=== PATIENT | female | born 1975 | race African-American/Black ===

== ENCOUNTER 2022-03-28 13:05 | Day surgery (SDC) | payer OTHER, SELFPAY ==
--- NOTE | 2022-03-28 | PATH_ITS ---
[facility] Accession Number: [id number] No. of containers..02 Tissue . 01 Material submitted: . PART A: sigmoid colon - SIGMOID PART B: rectum - RECTUM . 01 Diagnosis: A. Sigmoid Colon, Biopsy: Hyperplastic polyp with a small benign lymphoid aggregate. . B. Rectum, Biopsy: Hyperplastic polyp. MRV 04/03/2022 1342 Local . 01 Electronically signed: . Yudi Childs MD, Pathologist NPI- [id number] . 01 Gross description: . Part A: SIGMOID: Received in formalin is 1 fragment(s) of zheng, soft tissue measuring 0.2 x 0.2 x 0.2 cm submitted entirely in 1 cassette(s) Part B: RECTUM: Received in formalin are 2 fragment(s) of zheng, soft tissue measuring 0.3 x 0.2 x 0.1 cm to 0.2 x 0.1 x 0.1 cm submitted entirely in 1 cassette(s) /CPE 03/29/2022 0504 Local . 01 Pathologist provided ICD-10: K63.5 . 01 CPT . 367224, [id number] Specimen Comment: A courtesy copy of this report has been sent to [phone] Performed at: 01 [facility] [address] [place] [address] [address] [facility], [place], [place] [id number] MD Fox Stern MD Phone: [phone]
[2022-03-28 13:41] VITALS: BMI 32.7
[2022-03-28 14:08] VITALS: BP 128/84; PULSE 80; RESP 20; TEMP 36.4; O2SAT 99; BMI 33.7
[2022-03-28] MEDS: LACTATED RINGERS 1,000 ML 200 ML IV (14:27)
--- NOTE | 2022-03-28 15:05 | PM.HP.1 ---
History of Present Illness History of Present Illness Date Patient Seen: 03/28/22 Time Patient Seen: 15:06 Chief complaint: SDC Narrative: The patient presents for colorectal screening. They have never had any previous examination for such. No personal or family history of colon cancer. On further history denies any recent gastrointestinal symptoms. No nausea, vomiting, abdominal pain, loss of appetite, unexplained weight loss, change in bowel habits, or blood per rectum. Patient History Family & Social History Social History: household members spouse Tobacco & Substance use: Smoking Status Never smoker alcohol intake never Substance Use Type does not use Meds Home Medications and Allergies Home Medications Medication Instructions Recorded Confirmed Type sodium,potassium,mag sulfates 17.5 See Rx Instructions PO .COMPLEX 03/27/22 Rx gram-3.13 gram-1.6 gram oral soln #354 mL (Suprep Bowel Prep Kit) cetirizine 10 mg tablet (Zyrtec) 10 mg PO DAILY PRN Allergy Symptoms 03/28/22 03/28/22 History fluticasone propionate 50 2 spray intranasal DAILY 03/28/22 03/28/22 History mcg/actuation nasal spray,suspension lactase 9,000 unit chewable tablet 9,000 unit PO QAC PRN Abdominal 03/28/22 03/28/22 History Discomfort levocetirizine 5 mg tablet 5 mg PO DAILY 03/28/22 03/28/22 History Allergies Allergy/AdvReac Type Severity Reaction Status Date / Time latex Allergy Severe ITCHING Verified 03/28/22 13:51 animal dander Allergy Verified 03/28/22 13:50 banana Allergy Swelling Verified 03/28/22 13:50 of Lip/Tongue/Throat kiwi Allergy Swelling Verified 03/28/22 13:50 of Lip/Tongue/Throat pollen extracts Allergy Verified 03/28/22 13:50 lactose AdvReac Verified 03/28/22 13:50 walnut AdvReac Verified 03/28/22 13:50 dander Allergy Uncoded 03/28/22 13:50 Exam Vital Signs (past 8 hours): - 03/28/22 14:08 Temperature 97.5 F L Pulse Rate 80 Respiratory Rate 20 Blood Pressure 128/84 Pulse Oximetry 99 Oxygen Delivery Method Room Air Oxygen Delivery Method Room Air Narrative Exam Narrative: General adult woman alert oriented no acute distress Assessment & Plan Assessment & Plan narrative: The patient requires colorectal screening and colonoscopy is recommended. Technical details were discussed. Risks, benefits, alternatives explained. Risks including but not limited to myocardial infarction, aspiration, bleeding, pain, missed lesion, incomplete examination, need for further radiographic studies, colonic perforation, and need for major abdominal surgery were discussed. All questions were answered to their satisfaction, and they are in agreement with this plan. Time Spent With Patient Critical Care time: I spent a total of [] minutes of critical care time on this patient's care today; this time is exclusive of procedural time.
--- NOTE | 2022-03-28 15:33 | PM.OP.COLON ---
Operative Date/Time/Diagnoses Date of procedure: 03/28/22 Time of procedure: 15:33 Pre-op diagnosis: Colorectal screening Post-op diagnosis: same Procedure & Clinicians Study performed: Colonoscopy and polypectomy Same procedure as scheduled: Yes Indications: Colorectal screening Surgeon: Otis Da Silva Procedure Notes Procedure in detail: The history and physical was performed/updated and the patient is ASA class is 2. The procedure was discussed in detail with the patient. Potential risks complications including infection, bleeding, missed diagnosis, perforation, need for surgery, and were explained. Their questions were answered and informed consent was obtained. Patient was brought to the procedure room and placed standard monitoring equipment. The patient's vital signs were monitored continuously throughout the entire procedure. Prior to starting time-out was performed. The patient was placed in the left lateral recumbent position. Procedural sedation was administered by anesthesia. Examination began with a thorough inspection of the perianal area there was no evidence of fissures, fistulae, external hemorrhoids or cutaneous malignancy. The colonoscopy scope was then placed into the anal canal and was advanced to the cecum, which was identified by the ileocecal valve, the appendiceal orifice and the confluence of the taenia. The scope was then slowly withdrawn examining colon thoroughly in all directions, irrigating it of any residual stool. 1. Sigmoid colon-3 mm polyp removed with Jumbo forceps 2. Rectum-3 mm polyp removed with Jumbo forceps The patient tolerated the procedure well. They will be discharged once criteria are met. The prep was of good/excellent quality. The withdrawl time was 7 minutes. Specimen(s): other (Sigmoid and rectal polyps) Impression: Colonic polyps Post-procedure Recommendations: High fiber diet Plan for aftercare: Follow-up is depending on pathology findings Disposition: same day surgery
[2022-03-28 15:35] VITALS: BP 124/82; PULSE 75; RESP 10; TEMP 36.5; O2SAT 98
[2022-03-28 15:40] VITALS: BP 121/85; PULSE 74; RESP 17; O2SAT 99
[2022-03-28 15:45] VITALS: BP 123/85; PULSE 73; RESP 12; O2SAT 99
[2022-03-28 15:50] VITALS: BP 144/87; PULSE 78; RESP 16; TEMP 36.5; O2SAT 99
[2022-03-28 16:03] VITALS: BP 127/92; PULSE 74; RESP 16; TEMP 36.2; O2SAT 98
== END 2022-03-28 16:11 | disposition home or self-care (01) ==
PROVIDERS: PCP Physician Assistant; Referring Provider Surgery; Visit Provider Surgery
PROC: 0DJD8ZZ Inspection of Lower Intestinal Tract, Via Natural or Artificial Opening Endoscopic (ICD-10-PCS; CPT 45378; principal; 2022-03-28 14:45)
DX: Z12.11 Encounter for screening for malignant neoplasm of colon (principal); K63.5 Polyp of colon; K62.1 Rectal polyp
CPT/HCPCS: 45380; J2250; J2704; J3010